=== PATIENT | female | born 1960 | race Caucasian/White ===

== ENCOUNTER 2016-04-28 07:44 | Emergency (ER) | payer BC ==
[~2016-04-28] VITALS: Ht 167.6 cm; Wt 82.9 kg
[~2016-04-28 07:44] MED LIST: ADULT LOW DOSE81 M1 PO; ADVAIR 250/501 DISK IH; ALENDRONATE SOD70 MG PO; Famvir PO; LEVAQUIN500 MG PO; LEVOTHROID100 MCG PO; LEVOTHYROXINE112 MCG PO; LITE COAT ASPI325 M1 PO; Levaquin PO; NICOTINE PATCH1 EAC1 TD; PEN-VEE K,VEET500 MG PO; PREDNISONE10 MG PO; PROVENTIL HFA6.7 GM IH; SPIRIVA1 INHALATI; SPIRIVA1 INHALATI IH; ULTRAM ER 100100 MG PO; ULTRAM50 MG PO; VICODIN,LORT1 TABLET PO; VITAMIN D31000 UNIT PO; predniSONE PO
[2016-04-28 07:59] VITALS: BP 139/79
[2016-04-28 09:54] LABS: ADD MIUA? YES; BILIRUBIN NEGATIVE; BLOOD MODERATE; COLOR AMBER ((YELLOW)); GLUCOSE (STRIP) NEGATIVE; KETONES NEGATIVE; LEUKOCYTES MODERATE; NITRITE POSITIVE; PROTEIN (STRIP) 30; SPECIFIC GRAVITY 1.008 (1.000-1.030)
[2016-04-28 09:58] LABS: BACTERIA RARE /HPF; EPITHELIAL CELLS RARE /HPF; MUCUS NONE SEEN /LPF; RED BLOOD CELLS 20-30 /HPF (0-5); UCUL ADDED? YES; WHITE BLOOD CELLS TNTC /HPF (0-5)
[2016-04-28 09:59] LABS: CASTS NONE SEEN /LPF; CRYSTALS NONE SEEN
== END 2016-04-28 10:15 | disposition left against medical advice (07) ==
LOC: EME 07:44
DX: Z03.89 Encounter for observation for other suspected diseases and conditions ruled out (principal); Z53.21 Procedure and treatment not carried out due to patient leaving prior to being seen by health care provider
CPT/HCPCS: 81003; 87086

== ENCOUNTER 2016-08-29 04:32 | Emergency (ER) | payer BC ==
[~2016-08-29] VITALS: Ht 167.6 cm; Wt 79.4 kg
[2016-08-29 05:24] LABS: HEMATOCRIT 42.3 % (36.0-46.0); MCH 30.5 PG (29.0-34.0); MCHC 32.2 G/DL (30.0-36.0); MCV 94.8 FL (83-99); PLATELET COUNT 302 K/uL (156-360); RBC DIS.WIDTH-CV 12.9 % (11.8-14.6); RBC DIS.WIDTH-SD 45.2 % (39-53); RED BLOOD COUNT 4.46 M/uL (3.80-5.20); WHITE BLOOD COUNT 11.8 K/uL (4.1-10.2)
[2016-08-29 05:31] LABS: CHLORIDE 106 mEq/L (99-109); POTASSIUM 3.5 mEq/L (3.7-5.4); SODIUM 139 mEq/L (136-147)
[2016-08-29 05:33] LABS: GLUCOSE 104 mg/dL (70-99)
[2016-08-29 05:34] LABS: ANION GAP 8 MEQ/L (2-14)
[2016-08-29 05:37] LABS: GFR ESTIMATE (CALCULATED) > 59 mL/min/
[2016-08-29 05:38] LABS: UREA NITROGEN (BUN) 15 mg/dL (9-23)
[2016-08-29] MEDS ORDERED: AUGMENTIN875 MG PO (07:12)
[2016-08-29] MEDS ORDERED: NORCO 5/3251 TABLET PO (07:14)
[2016-08-29 07:44] VITALS: BP 126/70
== END 2016-08-29 07:46 | disposition home or self-care (01) ==
LOC: EME 04:32
PROVIDERS: Emergency Medicine
DX: K04.7 Periapical abscess without sinus (principal); L02.01 Cutaneous abscess of face; H11.1 Conjunctival degenerations and deposits; J44.9 Chronic obstructive pulmonary disease, unspecified; F17.200 Nicotine dependence, unspecified, uncomplicated
CPT/HCPCS: 70487; 80048; 85027; 99281; 99285; J0690; J7050

== ENCOUNTER 2017-04-20 22:10 | Inpatient (IN) | payer BC ==
[~2017-04-20] VITALS: Ht 167.6 cm; Wt 68.8 kg
[~2017-04-20 22:10] MED LIST changes: +AUGMENTIN875 MG PO; +CALCIUM 500 +1 EAC5 PO; +NORCO 5/3251 TABLET PO; -VITAMIN D31000 UNIT PO
[2017-04-20 23:11] LABS: HEMATOCRIT 37.3 % (36.0-46.0); HEMOGLOBIN 12.2 G/DL (11.9-15.5); MCH 30.3 PG (29.0-34.0); MCHC 32.7 G/DL (30.0-36.0); MCV 92.6 FL (83-99); PLATELET COUNT 381 K/uL (156-360); RBC DIS.WIDTH-CV 13.8 % (11.8-14.6); RBC DIS.WIDTH-SD 47.1 % (39-53); RED BLOOD COUNT 4.03 M/uL (3.80-5.20); WHITE BLOOD COUNT 23.8 K/uL (4.1-10.2)
[2017-04-20 23:25] LABS: CHLORIDE 100 mEq/L (99-109); SODIUM 135 mEq/L (136-147)
[2017-04-20 23:26] LABS: GLUCOSE 111 mg/dL (70-99)
[2017-04-20 23:30] LABS: CREATININE 0.8 mg/dL (0.6-1.3); GFR ESTIMATE (CALCULATED) > 59 mL/min/
[2017-04-20 23:31] LABS: UREA NITROGEN (BUN) 16 mg/dL (9-23)
[2017-04-20 23:37] LABS: TROP-I INTERPRETATION NEGATIVE; TROPONIN-I < 0.01 ng/mL (0.0-0.30)
[2017-04-21] MEDS ORDERED: IBUPROFEN800 MG PO (00:27)
[2017-04-21] MEDS ORDERED: VITAMIN E100 UNIT PO (00:27)
[2017-04-21] MEDS ORDERED: PEN-VEE K,VEET500 MG PO (00:27)
[2017-04-21] MEDS ORDERED: SINGULAIR10 MG PO (00:28)
[2017-04-21] MEDS ORDERED: TIZANIDINE HCL4 MG PO (00:28)
[2017-04-21 03:48] VITALS: BP 92/50
[2017-04-21 05:46] LABS: BASOPHIL (%) 0.4 % (0-1); BASOPHIL COUNT 0.1 K/uL (0-0.1); EOSINOPHIL (%) 0.5 % (0-5); EOSINOPHIL COUNT 0.1 K/uL (0-0.3); HEMATOCRIT 31.7 % (36.0-46.0); IMMATURE GRANULOCYTE (%) 0.5 % (0.0-0.7); LYMPHOCYTE (%) 15.3 % (15-42); LYMPHOCYTE COUNT 3.8 K/uL (1.0-2.8); MCH 30.1 PG (29.0-34.0); MCHC 31.9 G/DL (30.0-36.0); MCV 94.3 FL (83-99); NEUTROPHIL (%) 75.3 % (45-76); NEUTROPHIL COUNT 18.6 K/uL (1.8-6.4); PLATELET COUNT 315 K/uL (156-360); RBC DIS.WIDTH-CV 14.1 % (11.8-14.6); RBC DIS.WIDTH-SD 48.6 % (39-53); RED BLOOD COUNT 3.36 M/uL (3.80-5.20); WHITE BLOOD COUNT 24.7 K/uL (4.1-10.2)
[2017-04-21 05:47] LABS: HEMOGLOBIN 10.1 G/DL (11.9-15.5)
[2017-04-21 05:51] LABS: CHLORIDE 105 MEQ/L (99-109); CREATININE 0.7 MG/DL (0.6-1.3); GFR ESTIMATE (CALCULATED) > 59 mL/min/; GLUCOSE 158 mg/dL (70-99); POTASSIUM 3.4 MEQ/L (3.7-5.4); SODIUM 136 MEQ/L (136-147); UREA NITROGEN (BUN) 14 mg/dL (9-23)
[2017-04-21 08:21] VITALS: BP 89/52
[2017-04-21 09:21] LABS: HEMATOCRIT 32.3 % (36.0-46.0); HEMOGLOBIN 10.2 G/DL (11.9-15.5); MCH 30.4 PG (29.0-34.0); MCHC 31.6 G/DL (30.0-36.0); MCV 96.4 FL (83-99); PLATELET COUNT 298 K/uL (156-360); RBC DIS.WIDTH-CV 14.1 % (11.8-14.6); RBC DIS.WIDTH-SD 49.9 % (39-53); RED BLOOD COUNT 3.35 M/uL (3.80-5.20)
[2017-04-21 11:36] VITALS: BP 83/45
[2017-04-21 15:38] VITALS: BP 94/53
[2017-04-21 20:15] VITALS: BP 100/56
[2017-04-21 23:35] VITALS: BP 96/55
[2017-04-22 04:50] LABS: HEMATOCRIT 33.5 % (36.0-46.0); HEMOGLOBIN 10.6 G/DL (11.9-15.5); MCH 30.2 PG (29.0-34.0); MCHC 31.6 G/DL (30.0-36.0); MCV 95.4 FL (83-99); PLATELET COUNT 337 K/uL (156-360); RBC DIS.WIDTH-CV 14.1 % (11.8-14.6); RBC DIS.WIDTH-SD 49.7 % (39-53); RED BLOOD COUNT 3.51 M/uL (3.80-5.20); WHITE BLOOD COUNT 11.2 K/uL (4.1-10.2)
[2017-04-22 08:15] VITALS: BP 101/54
[2017-04-22 08:32] LABS: CHLORIDE 109 MEQ/L (99-109); CREATININE 0.6 MG/DL (0.6-1.3); GFR ESTIMATE (CALCULATED) > 59 mL/min/; SODIUM 139 MEQ/L (136-147); UREA NITROGEN (BUN) 9 mg/dL (9-23)
[2017-04-22 08:33] LABS: GLUCOSE 99 mg/dL (70-99); POTASSIUM 4.2 MEQ/L (3.7-5.4)
[2017-04-22] MEDS ORDERED: AZITHROMYCIN500 M1 PO (11:13)
== END 2017-04-22 12:55 | disposition home or self-care (01) | DRG 193 ==
LOC: EME 22:10 → EDOF 04-21 00:49 → 3EAST 04-21 00:49 → ENRESERV 04-21 00:57 → 3EAST 04-21 02:34
PROVIDERS: Hospitalist; Internal Medicine
DX: J18.9 Pneumonia, unspecified organism (principal); J96.01 Acute respiratory failure with hypoxia; E87.1 Hypo-osmolality and hyponatremia; J44.0 Chronic obstructive pulmonary disease with (acute) lower respiratory infection; E03.9 Hypothyroidism, unspecified; F17.200 Nicotine dependence, unspecified, uncomplicated; G89.29 Other chronic pain; Z87.01 Personal history of pneumonia (recurrent); Z79.82 Long term (current) use of aspirin
CPT/HCPCS: 71046; 71250; 80048; 83605; 84484; 85025; 85027; 87040; 87070; 87205; 87449; 87502; 93005; 94640; 94640 76; 94760; 94799; 99202; 99281; 99284; J0295; J0456; J0696; J1644; J7030; J7050